=== PATIENT | male | born 1990 | race African-American/Black ===

== ENCOUNTER 2020-12-07 19:49 | Emergency (ER) | payer MEDICAID, OTHER ==
[~2020-12-07] VITALS: Ht 172.7 cm; Wt 81.6 kg
[2020-12-08 04:56] VITALS: BP 153/90
== END 2020-12-08 06:36 | disposition home or self-care (01) ==
LOC: EDBD 19:49 → ER 19:54
DX: S93.401A Sprain of unspecified ligament of right ankle, initial encounter (principal); Z59.0 Homelessness; X58.XXXA Exposure to other specified factors, initial encounter; Y93.89 Activity, other specified; Y92.89 Other specified places as the place of occurrence of the external cause; Y99.8 Other external cause status
CPT/HCPCS: 73600

== ENCOUNTER 2020-12-08 16:59 | Emergency (ER) | payer MEDICAID ==
[~2020-12-08] VITALS: Ht 180.3 cm; Wt 81.6 kg
[2020-12-08 17:08] VITALS: BP 142/81
[2020-12-08] MEDS ORDERED: SODIUM CHLORIDE 0.9% 1,000 ML IV ONE (17:15)
[2020-12-08] MEDS ORDERED: LORazepam 2MG/ML-1ML VIAL IV ONE (17:15)
== END 2020-12-08 18:24 | disposition home or self-care (01) ==
LOC: EDBD 16:59 → ER 16:59
DX: F19.10 Other psychoactive substance abuse, uncomplicated (principal); R07.89 Other chest pain; F17.210 Nicotine dependence, cigarettes, uncomplicated; Z90.49 Acquired absence of other specified parts of digestive tract
CPT/HCPCS: 93005; 96361; 96374; 99283; J2060; J7030

== ENCOUNTER 2020-12-10 10:36 | Emergency (ER) | payer MEDICAID ==
[~2020-12-10] VITALS: Ht 175.3 cm; Wt 70.3 kg
[2020-12-10] MEDS ORDERED: LORazepam 0.5 MG TAB PO ONE (10:45)
[2020-12-10 11:32] VITALS: BP 105/67
== END 2020-12-10 11:40 | disposition home or self-care (01) ==
LOC: ER 10:36
DX: R44.0 Auditory hallucinations (principal); F12.10 Cannabis abuse, uncomplicated; F15.10 Other stimulant abuse, uncomplicated; F17.210 Nicotine dependence, cigarettes, uncomplicated; Z59.0 Homelessness; Z88.6 Allergy status to analgesic agent

== ENCOUNTER 2020-12-13 02:40 | Emergency (ER) | payer MEDICAID ==
[~2020-12-13] VITALS: Ht 175.3 cm; Wt 70.3 kg
[2020-12-13 07:55] VITALS: BP 132/79
[2020-12-13] MEDS ORDERED: KETOROLAC TROMETH 60MG/2ML VIAL IM ONE (08:15)
== END 2020-12-13 08:32 | disposition home or self-care (01) ==
LOC: ER 02:40
DX: B35.3 Tinea pedis (principal); M79.672 Pain in left foot; M79.671 Pain in right foot; F17.210 Nicotine dependence, cigarettes, uncomplicated; F12.10 Cannabis abuse, uncomplicated; F15.10 Other stimulant abuse, uncomplicated; Z59.0 Homelessness
CPT/HCPCS: 96372; 99283; J1885

== ENCOUNTER 2020-12-13 13:36 | Emergency (ER) | payer MEDICAID ==
[~2020-12-13] VITALS: Ht 175.3 cm; Wt 70.3 kg
[2020-12-13 13:40] VITALS: BP 143/77
== END 2020-12-13 16:22 | disposition left against medical advice (07) ==
LOC: ER 13:36
DX: R05 Cough (principal); F17.210 Nicotine dependence, cigarettes, uncomplicated; F12.10 Cannabis abuse, uncomplicated; F15.10 Other stimulant abuse, uncomplicated; Z59.0 Homelessness
CPT/HCPCS: 71045

== ENCOUNTER 2020-12-14 23:55 | Emergency (ER) | payer MEDICAID ==
[~2020-12-14] VITALS: Ht 175.3 cm; Wt 70.3 kg
[2020-12-15 01:10] LABS: Basophils # (auto) 0 10 ^3/uL (0-0.2); Basophils % (auto) 0.4 % (0.0-2.0); Eosinophils # (auto) 0.3 10 ^3/uL (0-0.8); Eosinophils % (auto) 4.6 % (0.0-7.0); Hematocrit 40.1 % (41.0-53.0); Hemoglobin 13.8 g/dL (13.5-17.5); Lymphocytes # (auto) 1.6 10 ^3/uL (0.4-5.4); Lymphocytes % (auto) 21.2 % (10.0-50.0); Mean Corpuscular Hemoglobin 30.9 pg (28.0-32.0); Mean Corpuscular Hgb Conc. 34.3 g/dL (32.0-36.0); Monocytes # (auto) 0.6 10 ^3/uL (0-1.3); Monocytes % (auto) 8.2 % (0.0-12.0); Neutrophils # (auto) 4.9 10 ^3/uL (1.6-8.6); Neutrophils % (auto) 65.6 % (37.0-80.0); Nucleated Red Blood Cells % 0.1 %; Red Blood Cells 4.46 10^6/uL (4.5-5.90); Red Cell Distribution Width 14.2 % (11.8-14.3); White Blood Cell 7.5 10^3/uL (4.4-10.8)
[2020-12-15 01:49] LABS: Albumin 3.6 g/dL (3.4-5.0); Calcium 8.6 mg/dL (8.5-10.1)
[2020-12-15 01:51] LABS: BUN/Creatinine Ratio 21.9
[2020-12-15 01:53] LABS: Bilirubin, Total 0.2 mg/dL (0.2-1.0); Total Protein 6.6 g/dL (6.4-8.2)
[2020-12-15 01:55] VITALS: BP 120/58
[2020-12-15] MEDS ORDERED: DIPHENOXYLATE W/ATROPINE 2.5 MG TAB PO ONE (02:00)
== END 2020-12-15 02:43 | disposition home or self-care (01) ==
LOC: ER 23:58
DX: R19.7 Diarrhea, unspecified (principal); F17.210 Nicotine dependence, cigarettes, uncomplicated; F41.9 Anxiety disorder, unspecified; Z20.822 Contact with and (suspected) exposure to COVID-19
CPT/HCPCS: 36415; 71045; 80053; 85025; 87426

== ENCOUNTER 2020-12-20 18:16 | Emergency (ER) | payer MEDICAID ==
[~2020-12-20] VITALS: Ht 175.3 cm; Wt 70.3 kg
[2020-12-20] MEDS ORDERED: CLINDAMYCIN 900MG IV 50 ML IV ONE (22:15)
[2020-12-20] MEDS ORDERED: SODIUM CHLORIDE 0.9% 1,000 ML IV ONE (22:15)
[2020-12-20] MEDS ORDERED: IBUPROFEN 600 MG TAB PO ONE (23:15)
[2020-12-21 00:10] VITALS: BP 134/74
== END 2020-12-21 00:12 | disposition home or self-care (01) ==
LOC: ER 18:19
DX: K02.9 Dental caries, unspecified (principal); K04.1 Necrosis of pulp; F20.9 Schizophrenia, unspecified; F41.9 Anxiety disorder, unspecified; F32.9 Major depressive disorder, single episode, unspecified; F17.210 Nicotine dependence, cigarettes, uncomplicated; Z59.0 Homelessness; Z88.6 Allergy status to analgesic agent
CPT/HCPCS: 96365; 96366; 99284; J3490

== ENCOUNTER 2021-01-06 18:50 | Emergency (ER) | payer MEDICAID ==
[~2021-01-06] VITALS: Ht 175.3 cm; Wt 70.3 kg
[2021-01-06 19:20] VITALS: BP 152/89
== END 2021-01-06 21:25 | disposition home or self-care (01) ==
LOC: EDBD 18:50 → ER 18:57
DX: R51.9 Headache, unspecified (principal); Z53.21 Procedure and treatment not carried out due to patient leaving prior to being seen by health care provider
CPT/HCPCS: 70450

== ENCOUNTER 2021-02-26 23:51 | Emergency (ER) | payer MEDICAID ==
[~2021-02-26] VITALS: Ht 170.2 cm; Wt 59.0 kg
[2021-02-26 23:59] VITALS: BP 132/74
== END 2021-02-27 00:23 | disposition left against medical advice (07) ==
LOC: ER 23:51 → EDBD 23:51 → ER 02-27 00:22
DX: K62.89 Other specified diseases of anus and rectum (principal); Z53.21 Procedure and treatment not carried out due to patient leaving prior to being seen by health care provider